=== PATIENT | female | born 1985 | race Caucasian/White ===

== ENCOUNTER 2016-06-24 11:15 | Emergency (ER) | payer SELFPAY ==
[~2016-06-24] VITALS: Ht 165.1 cm; Wt 131.0 kg
[~2016-06-24 11:15] MED LIST: AZIT250T94 PO; BENZ100C70 PO; PRED20TA PO
[2016-06-24 11:20] VITALS: Ht 165.1 cm; Wt 131.0 kg
== END 2016-06-24 15:57 | disposition left against medical advice (07) ==
LOC: FTE 11:15
DX: Z53.21 Procedure and treatment not carried out due to patient leaving prior to being seen by health care provider (principal)